=== PATIENT | female | born 1980 | race Caucasian/White ===

== ENCOUNTER 2020-06-05 21:49 | Emergency (ER) | payer OTHER ==
--- NOTE | 2020-06-05 22:02 | ED Physician Documentation ---
History of Present Illness - Stated complaint Stated Complaint: ETOH/VOMITING - History obtained from History obtained from: Family - Additonal information Additional information: Patient is a 39-year-old female brought in by family after she was found vomiting and drinking large amounts of red wine. Patient has a history of substance abuse. The remainder the history is unknown as the patient's clinically intoxicated. Review of Systems Unable to obtain: Intoxicated PD PAST MEDICAL HISTORY - Present Medications Home Medications: Ambulatory Orders Medication Instructions Recorded Confirmed Atomoxetine HCl 06/05/20 Methylphenidate HCl 18 mg PO DAILY 06/05/20 06/05/20 [Methylphenidate HCl ER] Methylphenidate HCl 36 mg PO DAILY 06/05/20 06/05/20 [Methylphenidate HCl ER] Sertraline [Zoloft] 06/05/20 Trazodone HCl 06/05/20 cloNIDine HCL [Clonidine HCl] 0.1 mg ORAL DAILY 06/05/20 06/05/20 hydrOXYzine pamoate [Hydroxyzine 25 mg ORAL DAILY 06/05/20 06/05/20 Pamoate] - Allergies Allergies/Adverse Reactions: Allergies Allergy/AdvReac Type Severity Reaction Status Date / Time No Known Drug Allergies Allergy Verified 06/05/20 22:21 PD ED PE NORMAL - Vitals Vital signs reviewed: Yes - General General: No acute distress, Other (intoxicated. smells of alcohol.) - HEENT HEENT: PERRL - Neck Neck: Supple, no meningeal sign - Cardiac Cardiac: RRR, No murmur - Respiratory Respiratory: Clear bilaterally - Abdomen Abdomen: Normal bowel sounds, Soft, Non tender, Non distended - Derm Derm: Warm and dry - Extremities Extremities: No deformity - Neuro Neuro: Other (intoxicated. smells of alcohol. ) - Psych Psych: Normal mood, Normal affect Results - Vitals Vitals: Vital Signs - 24 hr 06/05/20 06/06/20 21:55 01:54 Temperature 36.4 C L 36.3 C L Heart Rate 90 66 Respiratory 18 16 Rate Blood Pressure 128/93 H 120/85 H O2 Saturation 96 97 Oxygen O2 Source Room air - Labs Labs: Laboratory Tests 06/05/20 06/05/20 06/05/20 22:20 22:20 22:20 WBC 5.0 RBC 4.35 Hgb 14.1 Hct 41.9 MCV 96.3 MCH 32.4 H MCHC 33.7 RDW 12.5 Plt Count 265 MPV 9.6 Neut # (Auto) 2.6 Lymph # (Auto) 1.9 [place] # (Auto) 0.4 Eos # (Auto) 0.1 Baso # (Auto) 0.0 Absolute Nucleated RBC 0.00 Nucleated RBC % 0.0 Sodium 147 H Potassium 3.5 Chloride 99 L Carbon Dioxide 29 Anion Gap 19.0 H BUN 15 Creatinine 0.8 Estimated GFR (MDRD) 80 L Glucose 97 Calcium 9.6 Total Bilirubin 0.5 AST 36 ALT 14 Alkaline Phosphatase 63 Total Protein 8.2 Albumin 5.1 Globulin 3.1 Albumin/Globulin Ratio 1.6 Lipase 39 TSH 1.77 Urine Color Urine Clarity Urine pH Ur Specific Mayo Urine Protein Urine Glucose (UA) Urine Ketones Urine Occult Blood Urine Nitrite Urine Bilirubin Urine Urobilinogen Ur Leukocyte Esterase Ur Microscopic Review Urine Culture Comments Urine HCG, Qual Salicylates < 6.0 Urine Opiates Screen Ur Oxycodone Screen Urine Methadone Screen Ur Propoxyphene Screen Acetaminophen < 10 L Ur Barbiturates Screen Ur Tricyclics Screen Ur Phencyclidine Scrn Ur Amphetamine Screen U Methamphetamines Scrn U Benzodiazepines Scrn Urine Cocaine Screen U Cannabinoids Screen Ethyl Alcohol 266.8 06/05/20 23:32 WBC RBC Hgb Hct MCV MCH MCHC RDW Plt Count MPV Neut # (Auto) Lymph # (Auto) [place] # (Auto) Eos # (Auto) Baso # (Auto) Absolute Nucleated RBC Nucleated RBC % Sodium Potassium Chloride Carbon Dioxide Anion Gap BUN Creatinine Estimated GFR (MDRD) Glucose Calcium Total Bilirubin AST ALT Alkaline Phosphatase Total Protein Albumin Globulin Albumin/Globulin Ratio Lipase TSH Urine Color YELLOW Urine Clarity CLEAR Urine pH 7.0 Ur Specific Mayo 1.015 Urine Protein NEGATIVE Urine Glucose (UA) NEGATIVE Urine Ketones NEGATIVE Urine Occult Blood NEGATIVE Urine Nitrite NEGATIVE Urine Bilirubin NEGATIVE Urine Urobilinogen 0.2 (NORMAL) Ur Leukocyte Esterase NEGATIVE Ur Microscopic Review NOT INDICATED Urine Culture Comments NOT INDICATED Urine HCG, Qual NEGATIVE Salicylates Urine Opiates Screen NEGATIVE Ur Oxycodone Screen NEGATIVE Urine Methadone Screen NEGATIVE Ur Propoxyphene Screen NEGATIVE Acetaminophen Ur Barbiturates Screen NEGATIVE Ur Tricyclics Screen NEGATIVE Ur Phencyclidine Scrn NEGATIVE Ur Amphetamine Screen NEGATIVE U Methamphetamines Scrn NEGATIVE U Benzodiazepines Scrn NEGATIVE Urine Cocaine Screen NEGATIVE U Cannabinoids Screen NEGATIVE Ethyl Alcohol PD MEDICAL DECISION MAKING - ED course Complexity details: re-evaluated patient (reevalauted at 6 am. clinically sober. steady gait. clear speech. tolerating po.), considered differential (acute alcohol intoxication. patient sober at 6 am. ), other (patient will be signed out at shift change to dr. radha smith.) Departure - Departure Clinical Impression: Alcohol intoxication Qualifiers: Complication of substance-induced condition: with unspecified complication Qualified Code(s): F10.929 - Alcohol use, unspecified with intoxication, unspecified Condition: Stable Instructions: ED Alcohol Intoxication Follow-Up: your, doctor [Other] - 06/06/20
[2020-06-05] MEDS ORDERED: SODIUM CHLORIDE 0.9% 1,000 ML IV STA (22:36)
[2020-06-05] MEDS ORDERED: ONDANSETRON 4 MG/2 ML VIAL IVP STA (22:36)
[2020-06-05 22:54] LABS: BASOPHILS % (AUTO) 0.4 %; EOSINOPHILS # (AUTO) 0.1 10^3/uL (0.0-0.7); EOSINOPHILS % (AUTO) 1.2 %; HGB - HEMOGLOBIN 14.1 g/dL (12.0-16.0); LYMPHOCYTES # (AUTO) 1.9 10^3/uL (1.5-3.5); LYMPHOCYTES % (AUTO) 38.7 %; MEAN CORPUSCULAR HEMOGLOBIN 32.4 pg (27.0-31.0); MEAN CORPUSCULAR HGB CONC 33.7 g/dL (32.0-36.0); MEAN CORPUSCULAR VOLUME 96.3 fL (81.0-99.0); MEAN PLATELET VOLUME 9.6 fL (7.9-10.8); MONOCYTES # (AUTO) 0.4 10^3/uL (0.0-1.0); MONOCYTES % (AUTO) 8.1 %; NEUTROPHILS # (AUTO) 2.6 10^3/uL (1.5-6.6); NEUTROPHILS % (AUTO) 51.4 %; PLT - PLATELET COUNT 265 10^3/uL (130-450); RED BLOOD COUNT 4.35 10^6/uL (4.20-5.40); RED CELL DISTRIBUTION WIDTH 12.5 % (12.0-15.0)
[2020-06-05 23:10] LABS: ACETAMINOPHEN < 10 ug/mL (10-30); ALBUMIN 5.1 g/dL (3.2-5.5); ALBUMIN/GLOBULIN RATIO 1.6 (1.0-2.2); ALKALINE PHOSPHATASE 63 IU/L (42-121); ALT ALANINE AMINOTRANSFERASE 14 IU/L (10-60); AST ASPARTATE AMINOTRANSFERASE 36 IU/L (10-42); BILIRUBIN,TOTAL 0.5 mg/dL (0.2-1.0); CALCIUM 9.6 mg/dL (8.5-10.3); CARBON DIOXIDE - CO2 29 mmol/L (21-32); CHLORIDE 99 mmol/L (101-111); CREATININE 0.8 mg/dL (0.4-1.0); GLUCOSE 97 mg/dL (70-100); LIPASE 39 U/L (22-51); SALICYLATE < 6.0 mg/dL; SODIUM 147 mmol/L (135-145); TOTAL PROTEIN 8.2 g/dL (6.7-8.2)
[2020-06-05 23:17] LABS: BUN - BLOOD UREA NITROGEN 15 mg/dL (6-20)
[2020-06-05 23:43] LABS: MUDS CUTOFF CONCENTRATIONS CUTOFF CONC BELOW:
[2020-06-06 00:03] LABS: BILIRUBIN,URINE NEGATIVE (NEGATIVE); GLUCOSE, URINE (UA) NEGATIVE (NEGATIVE); KETONES,URINE (UA) NEGATIVE (NEGATIVE); LEUKOCYTE ESTERASE, URINE NEGATIVE (NEGATIVE); NITRITE,URINE NEGATIVE (NEGATIVE); OCCULT BLOOD,URINE NEGATIVE (NEGATIVE); PROTEIN,URINE NEGATIVE (NEGATIVE); UROBILINOGEN,URINE 0.2 (NORMAL) E.U./dL (NORMAL)
[2020-06-06 00:05] LABS: CLARITY,URINE CLEAR (CLEAR); HCG UR QUAL NEGATIVE
[2020-06-06 00:17] LABS: AMPHETAMINE SCREEN,URINE NEGATIVE (NEGATIVE); BENZODIAZEPINES SCREEN, URINE NEGATIVE (NEGATIVE); COCAINE SCREEN URINE NEGATIVE (NEGATIVE); METHADONE SCREEN, URINE NEGATIVE (NEGATIVE); METHAMPHETAMINES SCREEN, URINE NEGATIVE (NEGATIVE); OPIATE SCREEN, URINE NEGATIVE (NEGATIVE); OXYCODONE SCREEN, URINE NEGATIVE (NEGATIVE); PROPOXYPHENE SCREEN, URINE NEGATIVE (NEGATIVE); TRICYCLIC ANTIDEPRESSANT,URINE NEGATIVE (NEGATIVE)
[2020-06-06] MEDS ORDERED: IBUPROFEN 800 MG TABLET PO STA (01:47)
[2020-06-06] MEDS ORDERED: ONDANSETRON 4 MG/2 ML VIAL IVP STA (08:13)
--- NOTE | 2020-06-06 15:17 | ED Physician Documentation ---
ED Addendum - Addendum Addendum: 06/06/20 15:13 39-year-old female with a lot of life stressors is currently living with her parents with her 3 children and 6 other people in the house. She has been having an issue with alcohol use and last night came out of the [place] vomiting and intoxicated with her younger child. She is brought to the emergency department as sobered up overnight and today she is in early withdrawal. Her parents have been agreeable to hosting her at their home and continue to support her. They would like to see her get inpatient treatment. The patient is mortified of the thought that she is here in the emergency department under the circumstances and agrees to never touch alcohol again. She does classify herself as an alcoholic and states that she does not have a problem with alcohol she is an alcoholic.With the patient's permission I was able to contact her father who recommends that if we provide any medications for her for withdrawal that it be on the condition that they will be dispensed by her parents. The patient is amenable to this.
[2020-06-06] MEDS ORDERED: LORazepam 1 MG TABLET PO STA (15:20)
[2020-06-06 15:21] VITALS: BP 131/64
== END 2020-06-06 16:15 | disposition home or self-care (01) ==
LOC: ED 21:49
DX: F10.229 Alcohol dependence with intoxication, unspecified (principal); F10.239 Alcohol dependence with withdrawal, unspecified
CPT/HCPCS: 36415; 80320; 80329; 81003; 81025; 83690; 96361; 96374; 96376; 99281; 99283; A9270; J8499; 80053; 80306; 80307; 81001; 84443; 85025; 87086